=== PATIENT | female | born 1975 | race Caucasian/White ===

== ENCOUNTER 2024-02-23 12:15 | Outpatient (CLI) | payer BC | END 2024-02-23 12:16 | disposition home or self-care (01) | LOC: CSHMRI 12:15 | PROVIDERS: ATTEND Family Medicine | DX: E23.0 Hypopituitarism (principal); E27.40 Unspecified adrenocortical insufficiency; G43.909 Migraine, unspecified, not intractable, without status migrainosus | CPT/HCPCS: 70553 ==